=== PATIENT | female | born 2000 | race Two or more races ===

== ENCOUNTER 2020-07-17 12:08 | Emergency (ER) | payer OTHER, SELFPAY ==
--- NOTE | 2020-07-17 | US_ITS ---
EXAMINATION: FIRST TRIMESTER OB ULTRASOUND CLINICAL INFORMATION: Pain COMPARISON: None TECHNIQUE: First trimester transabdominal OB ultrasound FINDINGS: The uterus is normal in size and shape and measures 9.6 x 7 x 6.5 cm in sagittal AP and transverse dimension. There is an intrauterine gestational sac. [place]-rump length measures 3.2 cm suggesting gestational age of 10 weeks 1 day with estimated date of delivery of 02/11/2021. heart rate is 152 bpm. There is a yolk sac. The right maternal ovary is normal and measures 2.8 x 1.6 x 2.2 cm. The left maternal ovary is not seen. There is no fluid in the pelvis. IMPRESSION: Single viable intrauterine . From today's measurements gestational age is estimated at 10 weeks 1 day with estimated date of delivery of 02/11/2021.
[2020-07-17 12:41] VITALS: BP 130/77; PULSE 73; RESP 20; TEMP 36.9; O2SAT 99; BMI 33.3
[2020-07-17 12:48] VITALS: PULSE 73
[2020-07-17] MEDS: 0.9 % Sodium Chloride 1,000 ML 999 ML IVCONT (14:21)
[2020-07-17 14:22] LABS: MANUAL DIFF FLAG NO
[2020-07-17 14:26] LABS: Basophils Percent Auto 0.3 % (0-2); Eosinophils Absolute Auto 0.1 X10*3/uL (0.0-0.4); Eosinophils Percent Auto 0.4 % (0-4); Hematocrit 34.1 % (37-47); Hemoglobin 11.4 g/dl (12.0-16.0); Imm Gran Abs Auto 0.13 X10*3/uL (0.00-0.03); Imm Gran Pct Auto 1.1 % (0.0-0.4); Lymphocytes Absolute Auto 2.1 X10*3/uL (1.2-4.9); Lymphocytes Percent Auto 17.8 % (20-40); Mean Corpuscular HGB Conc 33.4 g/dl (31.0-35.0); Mean Corpuscular Hemoglobin 28.8 pg (27.0-33.0); Mean Corpuscular Volume 86.1 fL (80-98); Mean Platelet Volume 9.3 fL (9.4-12.3); Monocytes Absolute Auto 0.7 X10*3/uL (0.1-1.2); Monocytes Percent Auto 5.5 % (2-11); Neutrophils Absolute Auto 8.9 X10*3/uL (2.0-8.3); Neutrophils Percent Auto 74.9 % (45-73); Platelet Count 328 X10*3/uL (160-400); Red Blood Count 3.96 X10*6/uL (4.20-5.50); Red Cell Distribution Width 13.6 % (11.0-16.0); White Blood Count 11.9 X10*3/uL (4.8-10.8)
[2020-07-17 14:35] LABS: Glucose Urine UA NEG (NEG); Leukocyte Esterase Urine NEG (NEG); Nitrite Urine NEG (NEG); PH 6.5 (5.0-8.0); Specific Gravity - Urine >= 1.030 (1.005-1.025); UACC Culture Trigger NO; Urine Blood NEG (NEG); Urine Ketones NEG (NEG); Urine Protein NEG (NEG-TRACE)
[2020-07-17 14:36] LABS: Appearance Urine HAZY; Color Urine YELLOW
[2020-07-17 14:38] LABS: UPreg QC Valid YES; Urine Pregnancy POSITIVE (NEGATIVE)
[2020-07-17 14:56] LABS: Alanine Aminotransferase 14 U/L (0-31); Alkaline Phosphatase 67 U/L (39-117); Anion Gap 14 (12-20); Aspartate Amino Transferase 13 U/L (5-31); Bilirubin Direct < 0.2 mg/dL (0.0-0.5); Bilirubin Total 0.4 mg/dL (0.0-1.0); Blood Urea Nitrogen 6 mg/dL (9-16); Calcium 9.2 mg/dL (8.4-10.2); Carbon Dioxide 22 mmol/L (22-29); Chloride 105 mmol/L (96-108); Creatinine Clr Calc Pharmacy 143.1; Estimated Glomerular Filt Rate > 60; Glucose Random 67 mg/dL (60-115); Lipase 25 U/L (8-78); Potassium 3.9 mmol/l (3.3-5.1); Sodium 137 mmol/L (135-145); Total Protein 6.9 g/dL (6.5-8.0)
--- NOTE | 2020-07-17 16:50 | ED_ITS ---
HPI - Abdominal Pain General Chief Complaint: Abdominal Pain Stated Complaint: VOMITING Time Seen by Provider: 07/17/20 13:25 Source: patient Mode of arrival: ambulatory Limitations: no limitations History of Present Illness HPI narrative: This is a 20-year-old female who is currently between 10 to 12 weeks gestation she is A0 being followed by OBGYN services here with complaint of nausea and upper abdominal discomfort after she reports that she was given antibiotic for UTI. States she started taking this several days ago however every time she takes it makes her nauseated. States she has had overall well but due to the nausea she is worried that this may be affecting the baby and states she is either nervous or having some discomfort in the suprapubic area. She denies any vaginal bleeding or discharge. No flank pain. No fever. No concern for STI. MD elicited complaint: abdominal pain Pertinent past history: past UTI Onset (ago): day(s) Pain Consistency: intermittent (only after taking abx) Location: epigastric Severity: mild Associated symptoms: denies other symptoms Related Data Patient : Yes Previous Rx's Medication Instructions Recorded erythromycin 500 mg tablet 500 mg PO QID 5 Days #20 tab 07/16/20 nitrofurantoin monohyd/m-cryst 100 mg PO Q12H 7 Days #14 cap 07/17/20 [Macrobid] ondansetron HCl [Zofran] 4 mg PO Q8H PRN #10 tab 07/17/20 Allergies Allergy/AdvReac Type Severity Reaction Status Date / Time No Known Allergies Allergy Unverified 06/26/20 16:50 seasonal Allergy Unknown Uncoded 07/02/11 00:00 Review of Systems Review of Systems Constitutional: No Weight loss, No Fever, No Chills, No Night Sweats, No Fatigue, No Malaise ENT/Mouth: No Hearing loss, No Ear Pain, No Nasal Congestion, No Sinus Pain, No Hoarseness, No sore throat, No Rhinorrhea, No Swallowing Difficulty Eyes: No Eye Pain, No Swelling, No Redness, No Foreign Body, No Discharge, No Vision Changes Cardiovascular: No Chest Pain, No SOB, No Dyspnea on Exertion, No Orthopnea, No Edema, No Palpitations Respiratory: No Cough, No Sputum, No Wheezing, No Smoke Exposure, No Dyspnea Gastrointestinal: + Nausea, No Vomiting, No Diarrhea, No Constipation, + abdominal Pain In the epigastrium only when she takes the antibiotic., No Hematochezia, No Melena Genitourinary: no irregular bleeding, No Dysuria, No Urinary Frequency, No Hematuria, No Urinary Incontinence, No Urgency, No Flank Pain, No Urinary Flow Changes, No Hesitancy Musculoskeletal: No joint pain, No Myalgias, No Joint Swelling Skin: No Skin Lesions, No rash Neuro: No Weakness, No Numbness, No Paresthesias, No Loss of Consciousness, No Dizziness, No Headache Psych: No Anxiety/Panic, No Depression, No SI/HI/AH/VH, No Social Issues, H bassam/Lymph: No Bruising, No Bleeding,No Lymphadenopathy Endocrine: No Polyuria, No Polydipsia, No Temperature Intolerance Physical Exam Vital Signs and I&O and Narrative: Vital Signs and I&O: Vital Signs Temp 98.5 F 07/17/20 12:41 Pulse 73 07/17/20 12:41 Resp 20 07/17/20 12:41 BP 130/77 07/17/20 12:41 Pulse Ox 99 07/17/20 12:41 Intake & Output 07/16/20 07/17/20 07/17/20 18:59 06:59 18:59 Intake Total 1000 / 1000 Balance 1000 / 1000 Weight 79.838 kg Intake: Intake, IV Amoun t 1000 / 1000 0.9 % Sodium C hloride 1,000 ml 1000 / 1000 @ 999 mls/hr I VCONT .Q1H1M [facility] Rx#:[id number] Body Mass Index 33.3 Const: General: cooperative and healthy appearing; No acute distress or intoxicated appearing Nutritional Appearance: average body habitus Orientation/consciousness: patient oriented x3 HENMT: Head: Yes normal to inspection Ears: hearing grossly normal bilaterally Eyes: General: appearance normal, both eyes and all related structures Visual Yang: normal visual yang by confrontation Neck: Neck: Yes normal visual inspection and No tender Thyroid: Thyroid normal Chest: Chest palpation & inspection: normal inspection of the chest Resp: Effort & Inspection: normal respiratory effort Cardio: Jugular venous distension: no JVD Rate: regular rate GI: Inspection: Yes normal to inspection Percussion: Yes normal to percussion Auscultation: normal bowel sounds : General: Yes no CVA tenderness Back/Spine/Pelvis: Back: no CVA tenderness Skin: General skin exam: no rashes or lesions noted Neuro: General: patient oriented x3 Extrem: General: Yes normal to inspection Psych: Appearance: grossly normal and well kempt Course Course Course Narrative: has been resting comfortably. No pain or discomfort. Labs show very slight leukocytosis of 11.9. Otherwise labs stable. UA negative pending micro. Ob ultrasound shows single IUP from today's measurement gesta tional age estimated at 10 weeks 1 days with estimated due date of 02/11/2021. This is a correlation which her hCG quant. As well as a last minute cycle. No vaginal discharge or bleeding. recommendation at this time to stop the erythromycin. Pending the micro I would prefer Macrobid. No other signs or symptoms systemic infection or pyelo. No -related complaints. Will discharge with OB follow-up. MDM - Abdominal Pain Differential Diagnosis Differential diagnosis: Likely abdominal pain ( Antibiotic adverse effect, GERD, gastritis, , UTI) Lab Data Attestation: I reviewed the patient's lab results. Result diagrams: 07/17/20 14:15 07/17/20 14:15 Labs: Lab Results 07/17/20 07/17/20 07/17/20 Range/Units 14:15 14:15 14:15 WBC 11.9 H (4.8-10.8) X10*3/uL RBC 3.96 L (4.20-5.50) X10*6/uL Hgb 11.4 L (12.0-16.0) g/dl Hct 34.1 L (37-47) % MCV 86.1 (80-98) fL MCH 28.8 (27.0-33.0) pg MCHC 33.4 (31.0-35.0) g/dl RDW 13.6 (11.0-16.0) % Plt Count 328 (160-400) X10*3/uL MPV 9.3 L (9.4-12.3) fL Immature Gran % (Auto) 1.1 H (0.0-0.4) % Neut % (Auto) 74.9 H (45-73) % Lymph % (Auto) 17.8 L (20-40) % [place] % (Auto) 5.5 (2-11) % Eos % (Auto) 0.4 (0-4) % Baso % (Auto) 0.3 (0-2) % Lymph # (Auto) 2.1 (1.2-4.9) X10*3/uL [place] # (Auto) 0.7 (0.1-1.2) X10*3/uL Eos # (Auto) 0.1 (0.0-0.4) X10*3/uL Baso # (Auto) 0.0 (0.0-0.2) X10*3/uL Abs Immat Gran (auto) 0.13 H (0.00-0.03) X10*3/uL Absolute Neuts (auto) 8.9 H (2.0-8.3) X10*3/uL Absolute Nucleated RBC 0.000 (0.0-0.012) X10*3/uL Nucleated RBC % (auto) 0.0 (0.0-0.2) /100WBC Sodium 137 (135-145) mmol/L Potassium 3.9 (3.3-5.1) mmol/l Chloride 105 (96-108) mmol/L Carbon Dioxide 22 (22-29) mmol/L Anion Gap 14 (12-20) BUN 6 L (9-16) mg/dL Creatinine 0.60 (0.5-1.4) mg/dL Estim Creat Clear Calc 143.1 Estimated GFR > 60 Random Glucose 67 (60-115) mg/dL Calcium 9.2 (8.4-10.2) mg/dL Total Bilirubin 0.4 (0.0-1.0) mg/dL Direct Bilirubin < 0.2 (0.0-0.5) mg/dL AST 13 (5-31) U/L ALT 14 (0-31) U/L Alkaline Phosphatase 67 (39-117) U/L Total Protein 6.9 (6.5-8.0) g/dL Albumin 4.0 (3.5-5.0) g/dL Lipase 25 (8-78) U/L Beta HCG, Quant 013306 mIU/mL Urine Color YELLOW Urine Appearance HAZY Urine pH 6.5 (5.0-8.0) Ur Specific [place] >= 1.030 H (1.005-1.025) Urine Protein NEG (NEG-TRACE) MG/DL Urine Glucose (UA) NEG (NEG) MG/DL Urine Ketones NEG (NEG) MG/DL Urine Blood NEG (NEG) Urine Nitrite NEG (NEG) Ur Leukocyte Esterase NEG (NEG) Urine RBC 0 (0) /HPF Urine WBC 5-9 H (0-4) /HPF Ur Squamous Epith Cells 1+ /LPF Urine Bacteria TRACE /LPF Urine Test POSITIVE H (NEGATIVE) Blood Type 07/17/20 Range/Units 14:15 WBC (4.8-10.8) X10*3/uL RBC (4.20-5.50) X10*6/uL Hgb (12.0-16.0) g/dl Hct (37-47) % MCV (80-98) fL MCH (27.0-33.0) pg MCHC (31.0-35.0) g/dl RDW (11.0-16.0) % Plt Count (160-400) X10*3/uL MPV (9.4-12.3) fL Immature Gran % (Auto) (0.0-0.4) % Neut % (Auto) (45-73) % Lymph % (Auto) (20-40) % [place] % (Auto) (2-11) % Eos % (Auto) (0-4) % Baso % (Auto) (0-2) % Lymph # (Auto) (1.2-4.9) X10*3/uL [place] # (Auto) (0.1-1.2) X10*3/uL Eos # (Auto) (0.0-0.4) X10*3/uL Baso # (Auto) (0.0-0.2) X10*3/uL Abs Immat Gran (auto) (0.00-0.03) X10*3/uL Absolute Neuts (auto) (2.0-8.3) X10*3/uL Absolute Nucleated RBC (0.0-0.012) X10*3/uL Nucleated RBC % (auto) (0.0-0.2) /100WBC Sodium (135-145) mmol/L Potassium (3.3-5.1) mmol/l Chloride (96-108) mmol/L Carbon Dioxide (22-29) mmol/L Anion Gap (12-20) BUN (9-16) mg/dL Creatinine (0.5-1.4) mg/dL Estim Creat Clear Calc Estimated GFR Random Glucose (60-115) mg/dL Calcium (8.4-10.2) mg/dL Total Bilirubin (0.0-1.0) mg/dL Direct Bilirubin (0.0-0.5) mg/dL AST (5-31) U/L ALT (0-31) U/L Alkaline Phosphatase (39-117) U/L Total Protein (6.5-8.0) g/dL Albumin (3.5-5.0) g/dL Lipase (8-78) U/L Beta HCG, Quant mIU/mL Urine Color Urine Appearance Urine pH (5.0-8.0) Ur Specific [place] (1.005-1.025) Urine Protein (NEG-TRACE) MG/DL Urine Glucose (UA) (NEG) MG/DL Urine Ketones (NEG) MG/DL Urine Blood (NEG) Urine Nitrite (NEG) Ur Leukocyte Esterase (NEG) Urine RBC (0) /HPF Urine WBC (0-4) /HPF Ur Squamous Epith Cells /LPF Urine Bacteria /LPF Urine Test (NEGATIVE) Blood Type O Positive Imaging Data Ob/pelvic ultrasound: Radiologist's impression: [place] [id number] Ultrasound Report Signed Patient: Ruma Tamez#: [id number] : 2000Acct:[id number] Age/Sex: 20 / FADM Date: 07/17/20 Loc: .ED Attending Dr: Ordering Physician: Mati Sher NP Date of Service: 07/17/20 Procedure(s): US OB <= 14 weeks fetus Accession Number(s): [id number] cc: Mati Sher PHARMACY TEACHER~ EXAMINATION: FIRST TRIMESTER OB ULTRASOUND CLINICAL INFORMATION: Pain COMPARISON: None TECHNIQUE: First trimester transabdominal OB ultrasound FINDINGS: The uterus is normal in size and shape and measures 9.6 x 7 x 6.5 cm in sagittal AP and transverse dimension. There is an intrauterine gestational sac. [place]-rump length measures 3.2 cm suggesting gestational age of 10 weeks 1 day with estimated date of delivery of 02/11/2021. heart rate is 152 bpm. There is a yolk sac. The right maternal ovary is normal and measures 2.8 x 1.6 x 2.2 cm. The left maternal ovary is not seen. There is no fluid in the pelvis. IMPRESSION: Single viable intrauterine . From today's measurements gestational age is estimated at 10 weeks 1 day with estimated date of delivery of 02/11/2021. Dictated By:JOHNATHAN DINERO MD Signed By:<Electronically signed by JOHNATHAN DINERO MD in OV>07/17/20 1551 DD/ 1447 TD/TT: Barometers Calibrator: YULIA Discharge Plan Discharge Clinical Impression: UTI (urinary tract infection) during Qualifiers: Trimester: first trimester Qualified Code(s): O23.41 - Unspecified infection of urinary tract in , first trimester Patient Disposition: Home, Self-Care Additional Instructions: Stop taking the erythromycin antibiotic Start taking the new antibiotic prescribed to you today This antibiotic is called Macrobid take this twice a day for 7 days. Follow up with her OBGYN team as discussed Return if any concerns or worsening symptoms Thank you Prescriptions: New nitrofurantoin monohyd/m-cryst [Macrobid] 100 mg capsule 100 mg PO Q12H 7 Days Qty: 14 RF: 0 ondansetron HCl [Zofran] 4 mg tablet 4 mg PO Q8H PRN (Reason: nausea and vomiting) Qty: 10 RF: 0 No Action erythromycin 500 mg tablet 500 mg PO QID 5 Days Qty: 20 RF: 0 Referrals: Gonzales Masterson MD [Physician] - 2 days Stand Alone Forms: Work/School Release [facility] Past Medical History Attestation statement: The following information was validated with the patient. Medical History (Updated 07/17/20 @ 17:43 by Mati Sher NP) No known health problems Social History Social History Smoked in Last 30 Days: No Use of substances other than those prescribed or required for medical reasons: No Advance Directives: No Advance Directives Information Provided: Yes
[2020-07-17 17:20] LABS: Bacteria Urine TRACE /LPF; RBC Urine 0 /HPF (0); Squamous Epithelial Cell Urine 1+ /LPF; UACC CULT YES
== END 2020-07-17 18:06 | disposition home or self-care (01) ==
PROVIDERS: Nurse Practitioner Primary Care; Emergency Provider Internal Medicine
DX: O23.41 Unspecified infection of urinary tract in pregnancy, first trimester (principal); Z3A.10 10 weeks gestation of pregnancy
CPT/HCPCS: 36415; 76801; 80048; 80076; 81003; 81015; 81025; 83690; 84702; 85025; 86900; 86901; 87086; 87088; 87147; 87186; 96360; 99284; 99285

== ENCOUNTER 2020-07-30 09:03 | Outpatient (REF) | payer OTHER, SELFPAY ==
[2020-07-30 15:02] LABS: CT PCR NOT DETECTED (Not Detect.); NG PCR NOT DETECTED (Not Detect.)
== END 2020-07-30 09:04 | disposition home or self-care (01) ==
LOC: HO.LAB 09:03
PROVIDERS: Visit Provider Advanced Practice Midwife
DX: Z34.00 Encounter for supervision of normal first pregnancy, unspecified trimester (principal); R82.71 Bacteriuria
CPT/HCPCS: 87491; 87591; 90686

== ENCOUNTER 2020-08-01 13:53 | Outpatient (REF) | payer OTHER, SELFPAY ==
--- NOTE | 2020-08-01 | US_ITS ---
EXAMINATION: OBSTETRICAL ULTRASOUND, FIRST TRIMESTER HISTORY: 20-year-old at the 12.2 weeks of gestation NT screening High BMI COMPARISON: 07/17/2020 TECHNIQUE: Real time transabdominal imaging with color and M-mode Doppler. FINDINGS: A single, live IUP CRL of 66.3 mm c/w 13.0wks is noted. Heart Rate: 153 beats per minute. Normal yolk sac seen. NT was 1.12.mm. NB Present The embryo appears sonographically wnl for this GA. Both maternal ovaries are seen and appear normal. GESTATIONAL AGE: 1. Established GA: 12.2 wks 2. GA from AUA: 13.0 wks ESTIMATED DATE OF DELIVERY: 1. Established KIMO: 02/11/2021 2. KIMO from [facility]: 02/06/2021 US/US OB 1T nuc measure IMPRESSION: Single live IUP Size equals dates NT of 1.12 mm MFM Consultation: She informs me that the she was diagnosed with the renal tubular acidosis shortly after which resolved by the time she was 2 years of age. Without additional information, I would be difficult to estimate the risk to the fetus. In addition the renal tubular acidosis is not a diagnosis. I reviewed the ultrasound findings along with significance of NT measurement. The NT of less than 3mm is generally reassuring. However, the sensitivity for T21 detection is only 60%. I reviewed the availability of serum aneuploidy screening which includes cell-free DNA and placental protein based tests. I discussed the sensitivity, false-positive rate, and other limitations associated with each test. I also reviewed the availability of invasive diagnostic tests that are associated small but definite risk of miscarriage. We also reviewed the differences between screening tests and diagnostic tests. After our discussion, she opted for the First trimester screening that is based on cell-free DNA or non-invasive testing (NIPT). The result will be faxed to your office in approximately 7 days. A follow up at 18 weeks for survey has been scheduled. Thank you very much for this referral. Majority of this visit was spent reviewing her care and counselling her in face to face time: Time spent 20 min.
== END 2020-08-01 13:54 | disposition home or self-care (01) ==
LOC: HO.US 13:53
PROVIDERS: Visit Provider Advanced Practice Midwife
DX: Z34.91 Encounter for supervision of normal pregnancy, unspecified, first trimester (principal)
CPT/HCPCS: 76813

== ENCOUNTER → 2020-08-27 09:23 | Outpatient (BNVA) | payer OTHER, SELFPAY | PROVIDERS: Visit Provider Advanced Practice Midwife | DX: Z76.89 Persons encountering health services in other specified circumstances (principal) ==

== ENCOUNTER 2020-09-12 11:01 | Outpatient (REF) | payer OTHER, SELFPAY ==
--- NOTE | 2020-09-12 11:07 | US_ITS ---
EXAMINATION: US OBSTETRICAL CLINICAL INFORMATION: 20-year-old at 18.2 weeks of gestation Suspected anomaly COMPARISON: 08/01/2020 TECHNIQUE: Real-time transabdominal ultrasound was performed using C1-5 megahertz transducer. FINDINGS: A single, active, fetus is seen in breech presentation. The placenta is anterior without previa, and the amniotic fluid volume is wnl. MEASUREMENTS: 1. Biparietal Diameter: 4.2 cm; 18.5 wks 2. Occipital Frontal Diameter: 5.54 cm 3. Head Circumference: 15.7 cm; 18.5 wks 4. Abdominal Circumference: 13.2 cm; 18.6 wks 5. Femur Length: 2.8 cm; 18.4 wks 6. Humerus Length: 2.7 cm; 18.5 wks 7. Tibia Length: 2.3 cm; 18.1 wks 8. Ulna Length: 2.52 cm; 19.1 wks 9. Lateral ventricle: 0.76 cm 10. Cerebellum: 1.87 cm; 19.3 wks 11. Cisterna Magna: 0.36 cm 12. Nuchal Fold: 3.7 mm 13. Heart Rate: 142 beats per minute Rt ovary: normal Lt ovary: Unable to visualize Cervical length 4.1 cm on T/A. GESTATIONAL AGE: 1. Established GA: 18.2 wks 2. GA from [facility]: 18.5 wks ESTIMATED DATE OF DELIVERY: 1. Established KIMO: 02/11/2021 2. KIMO from [facility]: 02/08/2021 ANATOMY: The visualized anatomy includes but not limited to: 1. Cranium: Normal 2. Intracranial anatomy: cavum septum pellucidi, lateral ventricles, choroid plexus, cerebellum, posterior fossa, third and fourth ventricles. 3. face: orbits, lip/palate, profile, nasal bone 4. Heart: Limited views of the four-chamber and situs due to position. Following views were within normal limits: ventricular septum, foramen ovale, pulmonary vein, left and right outflow tracts, three-vessel view, 3 vessel trachea view, aortic and ductal arches. 5. Diaphragm: Normal 6. Abdominal wall: Normal 7. Cord Insertion: Normal 8. Spine: Suboptimal due to position. 9. Stomach: Normal size and shape 10. Right Kidney: Normal 11. Left Kidney: Normal 12. 3 vessel cord: Normal 13. Upper extremity: Open hands, fifth digit. 14. Lower extremity: Tibia, fibula, bilateral feet. 15. Bladder: Normal 16. Genitalia: Female, patient aware US/US OB /maternal detail IMPRESSION: 1. Single, living, intrauterine with appropriate biometry. 2. Limited the views of the four-chamber, situs and spine due to position. No abnormalities were seen in visualized anatomy. DISCUSSION: I reviewed today's ultrasound findings. We discussed the limitations of ultrasound in diagnosing aneuploidy and other congenital abnormalities. I reviewed the differences between screening test and diagnostic test. Amniocentesis was discussed and declined. She was informed that the baseline incidence of congenital abnormalities is approximately 3-5%. Not all these conditions are diagnosable in utero. RECOMMENDATIONS: 1. Follow-up ultrasound has been scheduled in 2 weeks. Thank you for allowing me to participate in her care. Visiting time 25 minutes. Majority of this visit was spent reviewing and discussing her care.
== END 2020-09-12 11:02 | disposition home or self-care (01) ==
LOC: HO.US 11:01
PROVIDERS: Visit Provider Advanced Practice Midwife
DX: O35.9XX0 Maternal care for (suspected) fetal abnormality and damage, unspecified, not applicable or unspecified (principal); Z3A.18 18 weeks gestation of pregnancy
CPT/HCPCS: 76811

== ENCOUNTER 2020-09-17 13:51 | Outpatient (REF) | payer OTHER, SELFPAY ==
[2020-09-18 11:11] LABS: BV Int Neg Control Negative (Negative); BV Int Pos Control Positive (Positive)
[2020-09-20 11:09] LABS: CT PCR NOT DETECTED (Not Detect.); NG PCR NOT DETECTED (Not Detect.)
== END 2020-09-17 13:52 | disposition home or self-care (01) ==
LOC: HO.LAB 13:51
PROVIDERS: Visit Provider Advanced Practice Midwife
DX: O26.892 Other specified pregnancy related conditions, second trimester (principal); R10.9 Unspecified abdominal pain; R30.0 Dysuria; R31.9 Hematuria, unspecified; N89.8 Other specified noninflammatory disorders of vagina
CPT/HCPCS: 87086; 87088; 87186; 87480; 87491; 87510; 87591; 87660; 99212

== ENCOUNTER 2020-09-18 09:03 | Outpatient (REF) | payer OTHER, SELFPAY ==
--- NOTE | 2020-09-18 09:13 | US_ITS ---
EXAMINATION: US RETROPERITONEAL LIMITED (RENAL ONLY) CLINICAL INFORMATION: Unspecified abdominal pain. COMPARISON: None TECHNIQUE: Real-time imaging of the kidneys. FINDINGS: RIGHT KIDNEY: 10.2 x 5.6 x 6.2 cm (SAG x AP x TRV). The kidney is normal in size, contour, and echogenicity. Renal cortical thickness is normal. No calculi or focal parenchymal lesions. No hydronephrosis. LEFT KIDNEY: 11.7 x 5.2 x 5.2 cm (SAG x AP x TRV). The kidney is normal in size, contour, and echogenicity. Renal cortical thickness is normal. No calculi or focal parenchymal lesions. No hydronephrosis. US/US renal BI IMPRESSION: Unremarkable renal ultrasound.
== END 2020-09-18 09:04 | disposition home or self-care (01) ==
LOC: HO.US 09:03
PROVIDERS: Visit Provider Advanced Practice Midwife
DX: R10.9 Unspecified abdominal pain (principal)
CPT/HCPCS: 76775

== ENCOUNTER 2020-09-24 08:18 | Outpatient (REF) | payer OTHER, SELFPAY | END 2020-09-24 08:19 | disposition home or self-care (01) | LOC: HO.LAB 08:18 | PROVIDERS: PCP Internal Medicine; Visit Provider Advanced Practice Midwife | DX: Z34.02 Encounter for supervision of normal first pregnancy, second trimester (principal) | CPT/HCPCS: 87086 ==

== ENCOUNTER 2020-09-26 09:06 | Outpatient (REF) | payer OTHER, SELFPAY ==
--- NOTE | 2020-09-26 09:18 | US_ITS ---
EXAMINATION: OBSTETRICAL ULTRASOUND, Follow up HISTORY: 20-year-old at 20.2 weeks of gestation Follow-up anatomy COMPARISON: 09/18/2020 TECHNIQUE: Real time transabdominal imaging with color and M-mode Doppler. PRESENTATION: Breech PLACENTA LOCATION: Anterior without previa AMNIOTIC FLUID: Normal MEASUREMENTS: 1. Biparietal Diameter: 4.5 cm; 19.5 wks 2. Head Circumference: 18.0 cm; 20.4 wks 3. Abdominal Circumference: 14.9 cm; 20.2 wks 4. Femur Length: 3.4 cm; 20.6 wks 5. Heart Rate: 147 beats per minute Normal views of spine, 4ch view, LVOT, RVOT, aortic and ductal arches, 3 vessel trachea view. GESTATIONAL AGE: 1. Established GA: 20.2 wks 2. GA from AUA: 20.3 wks ESTIMATED DATE OF DELIVERY: 1. Established KIMO: 02/11/2021 2. KIMO from [facility]: 02/10/2021 US/US OB follow up IMPRESSION: 1. A single fetus with appropriate interval growth. 2. Previously limited views of the anatomy were seen as listed above. No abnormalities were noted in visualized anatomy. 3. This completes the survey. I reviewed the limitations of ultrasound in diagnosing aneuploidy and other congenital abnormalities. Amniocentesis was again reviewed and she declined. She was informed that the baseline instance of congenital abnormalities and defects in the general population is approximately 3-5%. Not all these conditions are diagnosable in utero. RECOMMENDATIONS: 1. f/u PRN Thank you very much for this referral. Visiting time 15 minutes. Majority of this visit was spent reviewing the ultrasound findings as well as her care.
== END 2020-09-26 09:07 | disposition home or self-care (01) ==
LOC: HO.US 09:06
PROVIDERS: PCP Internal Medicine; Visit Provider Advanced Practice Midwife
DX: Z34.00 Encounter for supervision of normal first pregnancy, unspecified trimester (principal)
CPT/HCPCS: 76816

== ENCOUNTER → 2020-10-22 08:17 | Outpatient (BNVA) | payer OTHER, SELFPAY | PROVIDERS: PCP Internal Medicine; Visit Provider Advanced Practice Midwife | DX: Z34.02 Encounter for supervision of normal first pregnancy, second trimester (principal) | CPT/HCPCS: 81003; 99212 ==

== ENCOUNTER → 2020-11-19 08:40 | Outpatient (BNVA) | payer OTHER, SELFPAY | PROVIDERS: PCP Internal Medicine; Visit Provider Advanced Practice Midwife | DX: Z34.03 Encounter for supervision of normal first pregnancy, third trimester (principal); Z13.31 Encounter for screening for depression | CPT/HCPCS: 81003; 99212 ==

== ENCOUNTER 2020-12-02 09:10 | Outpatient (REF) | payer OTHER, SELFPAY ==
[2020-12-02 10:48] LABS: Hematocrit 31.9 % (37-47); Hemoglobin 10.6 g/dl (12.0-16.0); Mean Corpuscular HGB Conc 33.2 g/dl (31.0-35.0); Mean Corpuscular Volume 84.2 fL (80-98); Mean Platelet Volume 9.5 fL (9.4-12.3); Platelet Count 323 X10*3/uL (160-400); Red Blood Count 3.79 X10*6/uL (4.20-5.50); Red Cell Distribution Width 13.8 % (11.0-16.0); White Blood Count 13.4 X10*3/uL (4.8-10.8)
[2020-12-02 11:00] LABS: Glucose 1 Hour PP 50gm Dose 219 mg/dL (60-140)
[2020-12-03 07:39] LABS: Syphilis Screen Nonreactive (Nonreactive)
== END 2020-12-02 09:11 | disposition home or self-care (01) ==
LOC: HO.LAB 09:10
PROVIDERS: PCP Internal Medicine; Visit Provider Advanced Practice Midwife
DX: Z34.00 Encounter for supervision of normal first pregnancy, unspecified trimester (principal); Z20.2 Contact with and (suspected) exposure to infections with a predominantly sexual mode of transmission
CPT/HCPCS: 36415; 85027; 86780

== ENCOUNTER → 2020-12-03 09:10 | Outpatient (BNVA) | payer OTHER, SELFPAY | PROVIDERS: PCP Internal Medicine; Visit Provider Advanced Practice Midwife | DX: O24.419 Gestational diabetes mellitus in pregnancy, unspecified control (principal); O99.019 Anemia complicating pregnancy, unspecified trimester | CPT/HCPCS: 81003; 99212 ==

== ENCOUNTER → 2020-12-12 13:42 | Outpatient (BNVA) | payer OTHER, SELFPAY | PROVIDERS: PCP Internal Medicine; Visit Provider Obstetrics & Gynecology | DX: O24.419 Gestational diabetes mellitus in pregnancy, unspecified control (principal) | CPT/HCPCS: 81003; 99212 ==

== ENCOUNTER 2020-12-19 11:01 | Outpatient (REF) | payer OTHER, SELFPAY ==
--- NOTE | ~2020-12-19 | US_ITS ---
EXAMINATION: OBSTETRICAL ULTRASOUND, Follow up HISTORY: 20-year-old at the 32.2 weeks of gestation Gestational diabetes Size date discrepancy COMPARISON: 09/26/2020 TECHNIQUE: Real time transabdominal imaging with color and M-mode Doppler. PRESENTATION: Vertex PLACENTA LOCATION: Anterior without previa AMNIOTIC FLUID: SHO 11.5 cm MEASUREMENTS: 1. Biparietal Diameter: 8.25 cm; 33.2 wks 2. Head Circumference: 30.1 cm; 33.4 wks 3. Abdominal Circumference: 28.9 cm; 33.0 wks 4. Femur Length: 6.6 cm; 33.6 wks 5. Heart Rate: 150 beats per minute WEIGHT: EFW: 2157 grams (4 lbs 12 oz) -- 71 %. BIOPHYSICAL PROFILE: Motion: 2 Tone: 2 Breathin Amniotic Fluid: 2 Total score: 8/8 GESTATIONAL AGE: 1. Established GA: 32.2 wks 2. GA from AUA: 33.3 wks ESTIMATED DATE OF DELIVERY: 1. Established KIMO: 02/11/2021 2. KIMO from [facility]: 02/03/2021 US/US OB follow up IMPRESSION: A single active fetus is in vertex presentation Size equals dates, EFW corresponds to 71% Reassuring biophysical profile with normal amniotic fluid index. She was recently diagnosed with the gestational diabetes. She has been on GDM diet for one week. Reports that her fasting glucose values range in the 80s. Majority of her 2 hour postprandials range between 100 and 120. Reports that only 2 values were above 120 last week. We discussed the increased risk of macrosomia and hypoglycemia in woman with suboptimally controlled serum glucose during . I informed her that the EFW today corresponds to 70th%, which is wnl. I reviewed the limitations of ultrasound in estimating weight. In addition, normal SHO is reassuring. A follow up in 3 weeks has been scheduled. Thank you very much for this referral. Total time 20 minutes. The time spent was devoted to counseling the patient about the disease and diagnosis, coordinating care including reviewing her records, pertinent lab data and studies, as well as discussing diagnostic evaluation and workup, plan therapeutic interventions and future disposition of care. This includes any additional research needed to obtain further information in formulating the plan of care of this patient. This note was generated with a voice recognition program. Please excuse any errors which may have been overlooked during my review of this note. Sometimes these errors may affect the content or meaning of a given sentence.
== END 2020-12-19 11:02 | disposition home or self-care (01) ==
LOC: HO.US 11:01
PROVIDERS: PCP Internal Medicine; Visit Provider Obstetrics & Gynecology
DX: O24.410 Gestational diabetes mellitus in pregnancy, diet controlled (principal); Z3A.32 32 weeks gestation of pregnancy
CPT/HCPCS: 76816; 81003; 99212

== ENCOUNTER 2021-01-02 08:54 | Outpatient (REF) | payer OTHER, SELFPAY | END 2021-01-02 08:55 | disposition home or self-care (01) | LOC: HO.LAB 08:54 | PROVIDERS: PCP Internal Medicine; Visit Provider Obstetrics & Gynecology | DX: O24.410 Gestational diabetes mellitus in pregnancy, diet controlled (principal); O26.893 Other specified pregnancy related conditions, third trimester; R30.0 Dysuria; O99.820 Streptococcus B carrier state complicating pregnancy; Z3A.34 34 weeks gestation of pregnancy | CPT/HCPCS: 81003; 87086; 99212 ==

== ENCOUNTER 2021-01-09 09:43 | Outpatient (REF) | payer OTHER, SELFPAY ==
--- NOTE | ~2021-01-09 | US_ITS ---
EXAMINATION: OBSTETRICAL ULTRASOUND, Follow up HISTORY: 20-year-old at 35.2 weeks of gestation Gestational diabetes on diet Size date discrepancy COMPARISON: 12/19/2020 TECHNIQUE: Real time transabdominal imaging with color and M-mode Doppler. PRESENTATION: Vertex PLACENTA LOCATION: Anterior without previa AMNIOTIC FLUID: SHO 11.1 cm MEASUREMENTS: 1. Biparietal Diameter: 8.7 cm; 35.1 wks 2. Head Circumference: 32.9 cm; 37.3 wks 3. Abdominal Circumference: 32.2 cm; 36.1 wks 4. Femur Length: 7.2 cm; 36.6 wks 5. Heart Rate: 134 beats per minute WEIGHT: EFW: 2901 grams (6 lbs 6 oz) -- 76 %. BIOPHYSICAL PROFILE: Motion: 2 Tone: 2 Breathin Amniotic Fluid: 2 Total score: 8/8 GESTATIONAL AGE: 1. Established GA: 35.2 wks 2. GA from AUA: 36.3 wks ESTIMATED DATE OF DELIVERY: 1. Established KIMO: 02/11/2021 2. KIMO from [facility]: 02/03/2021 US/US OB follow up IMPRESSION: 1. A single active fetus is in vertex presentation 2. Size equals dates 3. Reassuring biophysical profile with normal amniotic fluid index. Patient informs me that that she has been on GDM diet for approximately a month. Reports that her fasting values this morning was 65. She is asymptomatic. I reviewed today's ultrasound findings and gave her reassurance. Recommended a follow-up in 3 weeks as long as her glycemic control remains excellent on diet. Thank you very much for this referral. Total time 30 minutes. The time spent was devoted to counseling the patient about the disease and diagnosis, coordinating care including reviewing her records, pertinent lab data and studies, as well as discussing diagnostic evaluation and workup, plan therapeutic interventions and future disposition of care. This includes any additional research needed to obtain further information in formulating the plan of care of this patient. This note was generated with a voice recognition program. Please excuse any errors which may have been overlooked during my review of this note. Sometimes these errors may affect the content or meaning of a given sentence.
== END 2021-01-09 09:44 | disposition home or self-care (01) ==
LOC: HO.US 09:43
PROVIDERS: PCP Internal Medicine; Visit Provider Obstetrics & Gynecology
DX: O24.419 Gestational diabetes mellitus in pregnancy, unspecified control (principal); Z3A.35 35 weeks gestation of pregnancy
CPT/HCPCS: 76816; 99212

== ENCOUNTER → 2021-01-16 08:42 | Outpatient (BNVA) | payer OTHER, SELFPAY | PROVIDERS: Visit Provider Obstetrics & Gynecology | DX: O24.410 Gestational diabetes mellitus in pregnancy, diet controlled (principal) | CPT/HCPCS: 99212 ==

== ENCOUNTER 2021-01-23 10:59 | Outpatient (REF) | payer OTHER, SELFPAY | END 2021-01-23 11:00 | disposition home or self-care (01) | LOC: HO.LAB 10:59 | PROVIDERS: Visit Provider Obstetrics & Gynecology | DX: O24.410 Gestational diabetes mellitus in pregnancy, diet controlled (principal); O26.893 Other specified pregnancy related conditions, third trimester; R82.71 Bacteriuria | CPT/HCPCS: 87081; 99212 ==

== ENCOUNTER → 2021-01-27 14:30 | Outpatient (BNVA) | payer OTHER, SELFPAY | PROVIDERS: Visit Provider Obstetrics & Gynecology | DX: O24.410 Gestational diabetes mellitus in pregnancy, diet controlled (principal); Z3A.37 37 weeks gestation of pregnancy | CPT/HCPCS: 81003; 99212 ==

== ENCOUNTER 2021-01-30 09:55 | Outpatient (REF) | payer OTHER, SELFPAY ==
--- NOTE | ~2021-01-30 | US_ITS ---
EXAMINATION: OBSTETRICAL ULTRASOUND, Follow up HISTORY: 20-year-old at the 38.2 weeks of gestation Size date discrepancy Gestational diabetes on diet COMPARISON: 01/09/2021 TECHNIQUE: Real time transabdominal imaging with color and M-mode Doppler. PRESENTATION: Vertex PLACENTA LOCATION: Anterior without previa AMNIOTIC FLUID: SHO 10.1 cm MEASUREMENTS: 1. Biparietal Diameter: 9.1 cm; 37.0 wks 2. Head Circumference: 33.3 cm; 38.0 wks 3. Abdominal Circumference: 32.8 cm; 36.6 wks 4. Femur Length: 7.5 cm; 38.3 wks 5. Heart Rate: 160 beats per minute WEIGHT: EFW: 3171 grams (7 lbs 0 oz) -- 39 %. BIOPHYSICAL PROFILE: Motion: 2 Tone: 2 Breathin Amniotic Fluid: 2 Total score: 8/8 GESTATIONAL AGE: 1. Established GA: 38.2 wks 2. GA from A: 37.4 wks ESTIMATED DATE OF DELIVERY: 1. Established KIMO: 02/11/2021 2. KIMO from AUA: 02/16/2021 US/US OB follow up IMPRESSION: 1. Single active fetus is in vertex presentation 2. Size equals dates 3. Normal biophysical No further ultrasound has been scheduled. Thank you very much for this referral. This note was generated with a voice recognition program. Please excuse any errors which may have been overlooked during my review of this note. Sometimes these errors may affect the content or meaning of a given sentence.
== END 2021-01-30 09:56 | disposition home or self-care (01) ==
LOC: HO.US 09:55
PROVIDERS: PCP Internal Medicine; Visit Provider Obstetrics & Gynecology
DX: O24.410 Gestational diabetes mellitus in pregnancy, diet controlled (principal); O26.843 Uterine size-date discrepancy, third trimester; Z3A.38 38 weeks gestation of pregnancy
CPT/HCPCS: 76816

== ENCOUNTER → 2021-02-09 11:19 | Outpatient (BNVA) | payer OTHER, SELFPAY | PROVIDERS: Visit Provider Obstetrics & Gynecology | DX: Z13.89 Encounter for screening for other disorder (principal) | CPT/HCPCS: 99212 ==

== ENCOUNTER 2021-03-27 08:53 | Outpatient (REF) | payer OTHER, SELFPAY ==
[2021-03-27 17:00] LABS: CT PCR NOT DETECTED (Not Detect.); NG PCR NOT DETECTED (Not Detect.)
== END 2021-03-27 08:54 | disposition home or self-care (01) ==
LOC: HO.LAB 08:53
PROVIDERS: Visit Provider Obstetrics & Gynecology
DX: Z39.2 Encounter for routine postpartum follow-up (principal); Z30.430 Encounter for insertion of intrauterine contraceptive device
CPT/HCPCS: 58300; 87491; 87591; 99212; J7298

== ENCOUNTER 2021-06-03 08:16 | Outpatient (REF) | payer OTHER, SELFPAY ==
[2021-06-04 08:58] LABS: BV Int Neg Control Negative (Negative); BV Int Pos Control Positive (Positive)
== END 2021-06-03 08:17 | disposition home or self-care (01) ==
LOC: HO.LAB 08:16
PROVIDERS: Visit Provider Advanced Practice Midwife
DX: R10.2 Pelvic and perineal pain (principal); Z30.431 Encounter for routine checking of intrauterine contraceptive device
CPT/HCPCS: 87480; 87510; 87660; 99212

== ENCOUNTER 2021-07-31 09:00 | Outpatient (REF) | payer OTHER, SELFPAY ==
[2021-07-31 14:20] LABS: CT PCR NOT DETECTED (Not Detect.); NG PCR NOT DETECTED (Not Detect.)
== END 2021-07-31 09:01 | disposition home or self-care (01) ==
LOC: HO.LAB 09:00
PROVIDERS: Visit Provider Advanced Practice Midwife
DX: Z01.419 Encounter for gynecological examination (general) (routine) without abnormal findings (principal); Z11.3 Encounter for screening for infections with a predominantly sexual mode of transmission; Z20.2 Contact with and (suspected) exposure to infections with a predominantly sexual mode of transmission
CPT/HCPCS: 87491; 87591; 88142

== ENCOUNTER 2022-08-31 15:38 | Emergency (ER) | payer OTHER, SELFPAY ==
[2022-08-31 15:44] VITALS: BP 149/81; PULSE 67; RESP 18; TEMP 36.2; O2SAT 99; BMI 35.9
--- NOTE | 2022-08-31 15:54 | ED_ITS ---
HPI - Ear Problem General Chief complaint: Ear Problems Stated complaint: ?left ear infection Time Seen by Provider: 08/31/22 15:49 Source: patient History of Present Illness HPI Narrative: Patient c/o left ear pain x several days. Son also had earache recently with URI. Denies fever chills or drainage from the ear. Complaint: ear pain Location: left ear Duration: constant Severity: mild Related Data Home Medications Medication Instructions Recorded Confirmed vitamin with calcium 1 tab PO DAILY 07/30/20 12/03/20 no.72-iron 27 mg-folic acid 1 mg tablet levonorgestrel 20 mcg/24 hours (8 intrauterine 06/03/21 yrs) 52 mg intrauterine device (Mirena) Previous Rx's Medication Instructions Recorded ondansetron HCl 4 mg tablet 4 mg PO Q8H PRN nausea and 07/17/20 (Zofran) vomiting #10 tabs nitrofurantoin 100 mg PO Q12H 5 days #10 caps 09/17/20 monohydrate/macrocrystals 100 mg capsule (Macrobid) miconazole nitrate 2 % vaginal 1 appful vaginal BEDTIME 7 days 09/18/20 cream (Monistat 7) #45 grams aspirin 81 mg chewable tablet 162 mg PO DAILY #60 tabs 10/22/20 (Aspirin Childrens) blood sugar diagnostic (FreeStyle #100 ea 12/03/20 Lite Strips) blood-glucose meter (FreeStyle #1 ea 12/03/20 Lite Meter kit) ferrous sulfate 324 mg (65 mg 324 mg PO TID #90 tabs 12/03/20 iron) tablet,delayed release lancets 28 gauge (FreeStyle #100 ea 12/03/20 Lancets) polyethylene glycol 3350 17 8.5 g PO DAILY #238 grams 12/03/20 gram/dose oral powder (Miralax) metronidazole 500 mg tablet 500 mg PO BID 7 days #14 tabs 06/04/21 (Flagyl) zimsmakn-wkngqteca-cmjbcxwgx 3.5 4 drp otic (ear) left Q8H #10 mL 08/31/22 mg-10,000 unit/mL-1 % ear drops,susp Allergies Allergy/AdvReac Type Severity Reaction Status Date / Time Penicillins Allergy Intermediate itching, Verified 07/31/21 09:16 throat feels funny seasonal Allergy Unknown Unknown Uncoded 01/16/21 08:52 Review of Systems Constitutional: Constitutional: Denies chills, Denies fever(s), Denies headache(s), Denies weakness, Denies weight gain and Denies weight loss ENT: Denies dizziness, Denies dry mouth, Denies ear discharge, Reports otalgia, Denies facial pain and Denies headache(s) Musculoskeletal: Musculoskeletal: Denies tingling Neurologic: Denies Abnormal speech present, Denies confusion, Denies dizziness, Denies headache(s), Denies tingling and Denies weakness Psychiatric: Psychiatric: Denies confusion [facility] Past Medical History Medical History Constipation GERD (gastroesophageal reflux disease) RTA (renal tubular acidosis) Spinal asymmetry (< 10 degrees) Surgical History No history of previous surgery [place] teeth extracted Family History Family History Maternal Grandmother Diabetes mellitus HTN (hypertension) CVD (cardiovascular disease) Maternal Grandfather Diabetes mellitus HTN (hypertension) Social History Social History Alcohol intake: never Advance Directives: No Advance Directives Information Provided: No Gender identity: Female Physical Exam Vital Signs: Vital Signs: Last Vital Signs Temp 97.1 F 08/31/22 15:44 Pulse 67 08/31/22 15:44 Resp 18 08/31/22 15:44 BP 149/81 H 08/31/22 15:44 Pulse Ox 99 08/31/22 15:44 O2 Del Method 08/31/22 15:44 BMI result Body Mass Index 35.9 minimal systolic hypertension Const: General: No confusion Orientation/consciousness: patient oriented x3 and No confusion HEENT: Head: Yes normal to inspection, Yes normocephalic and Yes atraumatic Ears: hearing grossly normal bilaterally, external ears normal, TM normal on the right, left TM abnormal and TM abnormal erythematous; not bulging General no se exam: Normal external nose present Eyes: General: appearance normal, both eyes and all related structures Sclerae: sclerae normal Corneas: corneas normal Neck: Neck: Yes normal visual inspection and Yes full ROM Neuro: General: patient oriented x3 and No confusion Cranial nerves: Yes CN's II-XII intact bilaterally Speech: No Abnormal speech present Extrem: General: Yes normal to inspection and Yes full ROM MDM - Ear MDM Narrative Medical decision making narrative: Patient appears to have a mild otitis externa with inflammation in the canal and a relatively normal TM. will provide topical treatment and advise to take OTC decongestant/antihistamine. Medical Records Medical records narrative: non contributory Discharge Plan Discharge Clinical Impression: Otitis externa Patient Disposition: Home, Self-Care Instructions: Otitis Externa (ED) Prescriptions: New dllfqpzw-uwcmfygah-LP 3.5-10,000-1 mg/mL-unit/mL-% drops,suspension 4 drp otic (ear) left Q8H Qty: 10 0RF No Action metronidazole [Flagyl] 500 mg tablet 500 mg PO BID 7 Days Qty: 14 0RF Rx Instructions: Take with food, Avoid alcohol and vinegar products ondansetron HCl [Zofran] 4 mg tablet 4 mg PO Q8H PRN (Reason: nausea and vomiting) Qty: 10 0RF Vitamin Plus Low Iron 27 mg iron- 1 mg tablet 1 tab PO DAILY (DME) lancets [FreeStyle Lancets] 28 gauge misc See Rx Instructions miscellaneous .MEDSUPPLY Qty: 100 6RF Rx Instructions: four times as day (DME) FreeStyle Lite Strips Strip See Rx Instructions miscellaneous .MEDSUPPLY Qty: 100 6RF Rx Instructions: four times a day (DME) blood-glucose meter [FreeStyle Lite Meter] Kit See Rx Instructions .ROUTE .MEDSUPPLY Qty: 1 0RF Rx Instructions: four times a day ferrous sulfate 324 mg (65 mg iron) tablet,delayed release (DR/EC) 324 mg PO TID Qty: 90 4RF polyethylene glycol 3350 [Miralax] 17 gram/dose powder 8.5 g PO DAILY Qty: 238 1RF Adacel(Tdap Adolesn/Adult)(PF) 2 Lf-(2.5-5-3-5 mcg)-5Lf/0.5 mL syringe 0.5 ml IM ONCE Qty: 0.5 0RF Mirena 20 mcg/24 hours (6 yrs) 52 mg intrauterine device intrauterine nitrofurantoin monohyd/m-cryst [Macrobid] 100 mg capsule 100 mg PO Q12H 5 Days Qty: 10 0RF Rx Instructions: must administer with a meal/food miconazole nitrate [Monistat 7] 2 % cream 1 appful vaginal BEDTIME 7 Days Qty: 45 0RF aspirin [Aspirin Childrens] 81 mg tablet,chewable 162 mg PO DAILY Qty: 60 7RF Rx Instructions: start 2 tabs daily at bedtime at 14-16weeks and continue daily until 2 weeks
== END 2022-08-31 15:55 | disposition home or self-care (01) ==
PROVIDERS: Emergency Provider Emergency Medicine
DX: H60.503 Unspecified acute noninfective otitis externa, bilateral (principal)
CPT/HCPCS: 99281; 99283

== ENCOUNTER → 2022-12-22 14:11 | Outpatient (BNVA) | payer OTHER, SELFPAY | PROVIDERS: Visit Provider Advanced Practice Midwife | DX: O26.899 Other specified pregnancy related conditions, unspecified trimester (principal); N92.6 Irregular menstruation, unspecified; O24.419 Gestational diabetes mellitus in pregnancy, unspecified control; O99.019 Anemia complicating pregnancy, unspecified trimester; D64.9 Anemia, unspecified; O33.8 Maternal care for disproportion of other origin; O09.899 Supervision of other high risk pregnancies, unspecified trimester; E87.4 Mixed disorder of acid-base balance; Z3A.00 Weeks of gestation of pregnancy not specified; Z78.9 Other specified health status | CPT/HCPCS: 81025; 99212 ==

== ENCOUNTER 2022-12-24 14:51 | Outpatient (REF) | payer OTHER, SELFPAY ==
--- NOTE | ~2022-12-24 | US_ITS ---
EXAMINATION: US OBSTETRICAL ULTRASOUND CLINICAL INFORMATION: Irregular menstruation. COMPARISON: Ultrasound OB 01/30/2021. LMP: Unknown. Gestational age by maternal dates is none. Estimated date of delivery by maternal dates is none. TECHNIQUE: Transabdominal imaging of pelvis is performed. FINDINGS: There is a single intrauterine gestational sac with visible yolk sac, embryo/fetus, and cardiac activity. There is no significant subchorionic hemorrhage or hematoma. HR: 140 beats per minute. CRL (crown rump length): 0.99 cm (7 weeks and 1 day +/- 4 days). KIMO (estimated date of delivery): 08/11/2023 +/- 4 days. MATERNAL ADNEXA: The right maternal ovary measures 1.8 x 1.1 x 1.5 cm. No focal lesion seen. The left maternal ovary measures 2.6 x 2.3 x 2.4 cm. There is anechoic cyst measuring 1.7 x 1.5 x 1.5 cm. There is no significant maternal adnexal mass. No maternal pelvic ascites. US/US OB <= 14 weeks fetus IMPRESSION: 1. Single intrauterine gestation with ultrasound gestational age of 7 weeks and 1 day +/- 4 days. 2. Estimated date of delivery is 08/11/2013 +/- 4 days. 3. No maternal adnexal mass or pelvic ascites.
== END 2022-12-24 14:52 | disposition home or self-care (01) ==
LOC: HO.US 14:51
PROVIDERS: Visit Provider Advanced Practice Midwife
DX: Z34.91 Encounter for supervision of normal pregnancy, unspecified, first trimester (principal); Z3A.01 Less than 8 weeks gestation of pregnancy
CPT/HCPCS: 76801

== ENCOUNTER 2025-09-18 13:35 | Outpatient (AMB) | payer BC, SELFPAY ==
[2025-09-18 13:37] VITALS: BP 112/76; PULSE 83; TEMP 36.8; O2SAT 96; BMI 39.0
--- NOTE | 2025-09-18 13:37 | AM.OFFWIN_ITS ---
Intake Vital Signs 09/18/25 13:37 Height 5 ft 2 in Weight 213 lb BMI 39.0 BP 112/76 Blood Pressure Location Lt brachial Position Sitting Pulse 83 Pulse Source Pulse Oximeter Temp 98.3 F Temp Source Oral Pulse Oximetry (%) 96 Oxygen Delivery Method Room Air Intake Visit Reasons: EP possible cyst on right arm Intake Note: Patient presents c/o red, painful, hard, warm cyst x5 days. Patient Tobacco Use Status: Never used Tobacco Allergies Penicillins Allergy (Intermediate, Verified 09/18/25 13:41) itching, throat feels funny seasonal Allergy (Unknown, Uncoded 09/18/25 13:41) Unknown HPI HPI Comments History of Present Illness Details This is a 25-year-old female with no stated past medical history presenting for evaluation of a red painful lesion on her right arm that has been evolving over the past 5 days. Patient states that she comes today because the lesion has become significantly more painful since yesterday. She denies having any fevers but has had chills. She has not taken any medication for treatment of this lesion however has used warm compresses directly on top of the lesion. [facility] Medical History Constipation GERD (gastroesophageal reflux disease) RTA (renal tubular acidosis) Spinal asymmetry (< 10 degrees) Surgical History No history of previous surgery [place] teeth extracted Family History Maternal Grandmother Diabetes mellitus HTN (hypertension) CVD (cardiovascular disease) Maternal Grandfather Diabetes mellitus HTN (hypertension) Social History Alcohol intake: never Patient Tobacco Use Status: Never used Tobacco Current occupational status: employed Sexual orientation: Straight/Heterosexual Gender identity: Female Female Reproductive History Menstrual Age of Menarche: 10 Review of Systems Const All systems reviewed & are unremarkable except as noted in HPI and below Denies body aches, Denies chills, Denies fatigue and Denies fever(s) Musc Reports no additional complaints Skin/Breast Reports lesions, Reports new lesions and Reports erythema Neuro Reports no additional complaints Psych Reports no additional complaints Endo Reports no additional complaints and Denies fatigue Inderjit/Lymph Reports no additional complaints Aller/Immun Reports no additional complaints Physical Exam Vital Signs: BMI result Body Mass Index 39.0 Patient is afebrile. Const General: cooperative, healthy appearing, comfortable, no acute distress, well developed, alert, awake and Physically active; No acute distress, ill appearing or lethargic Nutritional Appearance: overweight Orientation/consciousness: patient oriented x3 and No lethargic Limitations: no limitations Skin Other: There is a 2cm round erythematous area of induration and tenderness on the dors al right forearm with 1.5cm surrounding macular erythema and central excoriation. No active discharge or fluctuance appreciated. Neuro General: patient oriented x3 Extrem Other: ROM intact right olecranon, right wrist; sensation intact throughout. Psych Appearance: grossly normal Mental Status: mental status grossly normal Insight: Good insight present (Psych) Judgement: Good judgement present (Psych) Assessment & Plan Assessment & Plan (1) Abscess of forearm, right: Comment: Macular erythema surrounding the evolving abscesses is marked with a surgical marker and the patient will be discharged home with antibiotic therapy. Given the characteristics of this lesion, I & D would not be therapeutic or productive at this time. Code(s): L02.413 - Cutaneous abscess of right upper limb Plan: Warm moist compresses 3 times daily; doxycycline 100 mg b.i.d. x7 days. Medications: New doxycycline hyclate 100 mg PO BID 14 caps 0RF Coding Level of Care Code Est Pt Level 3 (00143) Diagnoses Abscess of forearm, right L02.413 Time Spent (min) 20
--- OUTSIDE RECORDS SUMMARY | 2025-09-18 21:03 | XMS_ITS | Clinical Summary ---
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 Latisha Tee MD Primary Care Provider Surgical History Surgery Date Site/Laterality Comments WISDOM TOOTH EXTRACTION 2014 Bilateral PROCEDURE: HISTORICAL WISDOM TEETH EXTRACTION Medical History Medical History Date Comments Exercise-induced asthma DX:Exerc ise-induced asthma Anxiety disorder DX:Anxiety diso rder Family History Medical History Relation Name Comments Diabetes Father Hypertension Father Diabetes Maternal Grandmother Diabetes Mother Hypertension Mother Breast cancer Neg Hx Colon cancer Neg Hx Ovarian cancer Neg Hx Relation Name Status Comments Father Alive Maternal Grandmother Mother Alive Social History Tobacco Use Types Packs/Day Years Used Date Smoking Tobacco: Never Smokeless Tobacco: Never Alcohol Use Standard Drinks/Week Comments Yes 0 (1 standard drink = 0.6 oz pur e alcohol) Comments Unknown Sex and Gender Information Value Date Recorded Sex Assigned at Not on file Legal Sex Female 4:46 PM EST Gender Identity Not on file Sexual Orientation Not on file Plan of Treatment Health Maintenance Due Date Last Done Comments HPV Vaccines (1 - 3-dose series) 2015 DTaP,Tdap,and Td Vaccines (1 - Tdap) 2019 Hepatitis B Vaccines (1 of 3 - 19+ 3-dose series) 2019 Cervical Cancer Screening: P ap Smear 2021 Depression Screening 10/10/2024 COVID-19 Vaccine ( - 2024-2 6 season) 2025 Influenza Vaccine (#1) 2025 07/09/2021 RSV Immunization Adult Patie nts (1 - 1-dose 75+ series) 2075 HIB Vaccines Aged Out No longer eligi ble based on patient's age to complete this topic Hepatitis A Vaccines Aged Out No long er eligible based on patient's age to complete this topic IPV Vaccines Aged Out No longer eligi ble based on patient's age to complete this topic MMR Vaccines Aged Out No longer eligi ble based on patient's age to complete this topic Meningococcal ACWY Vaccine Aged Out N o longer eligible based on patient's age to complete this topic Meningococcal B Vaccine Aged Out No l onger eligible based on patient's age to complete this topic Pneumococcal Vaccine: Pediat rics (0 to 5 Years) and At-Risk Patients (6 to 49 Years) Aged Out No longer eligi ble based on patient's age to complete this topic RSV Immunization Patients Un roverto 20 months Aged Out No longer eligible b ased on patient's age to complete this topic Varicella Vaccines Aged Out No longer eligible based on patient's age to complete this topic Care Teams [employer] Farmworker Relationship Specialty Start Date End Date Latisha Tee MD PCP - General Internal Medicine 02/05/21
--- OUTSIDE RECORDS SUMMARY | 2025-09-18 21:03 | XMS_ITS | Encounter Summary ---
Author Organization [facility] Address [address] [place] [id number] Phone Care Team Providers Care Professor Of Exercise Science Name Role Phone Unavailable Primary Care Provider Unavailabl e Encounter Details Date Type Department Care Team (Late st Contact Info) Description 05/26/2017 Conversion Encounter [facility] - [address] [address] Social History Tobacco Use Types Packs/Day Years Used Date Smoking Tobacco: Never Comments:Never smoker Comments Unknown Sex and Gender Information Value Date Recorded Sex Assigned at Not on file Legal Sex Female 5:13 PM EDT Gender Identity Not on file Sexual Orientation Not on file documented as of this encounter Plan of Treatment Not on file documented as of this encounter Visit Diagnoses Not on filedocumented in this encounter
--- OUTSIDE RECORDS SUMMARY | 2025-09-18 21:03 | XMS_ITS | Clinical Summary ---
Author Organization [facility] Address [address] [place] [id number] Phone Care Team Providers Care Night Supervisor Name Role Phone Unavailable Primary Care Provider Unavailabl e Allergies No known active allergies Medications desogestrel-ethiny l estradiol (APRI) 0.15-30 MG-MCG per tabletIndications: Encounter for initial prescription of contraceptive pills Take 1 tablet by mouth daily. 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 06/26/2012 Immunizations Immunization Administration Dates Next Due DTaP 11/13/2004, 1,2000,09/26,2000 HPV Vaccine 9 Valent 09/26/2015 HPV, Quadrivalent 11/12/2014,06/26/2012 Hep A, ped/adol 09/26/2015,11/12/2014 Hep B, ped/adol 2000,2000,2000 Hib (HbOC) 05/29/2001, 1,2000,08/04 IPV 11/13/2004, 1,2000,08/04 Influenza Split 06/26/2012 Influenza, injectable, quadrivalent 09/26/2015,0 11/12/2014 Influenza, injectable, quadr ivalent, preservative free 09/07/2017 Influenza, injectable, trivalent 11/09/2010,10/11 Influenza, intranasal, trivalent 12/04/2008 MMR 11/13/2004,05/29/2001 Meningococcal Conj (Menactra) MCV4P 12/10/2016,0 06/26/2012 Pneumococcal Conjugate 05/29/2001,2000,2000,08/04 Tdap 06/26/2012 Varicella 05/04/2009,05/29/2001 Family History Relation Name Status Comments Mother Alive Mother: Alive a nd well, Asthma, Diabetes mellitus Other Family history of Hypertension, Family history of Obesity Social History Tobacco Use Types Packs/Day Years Used Date Smoking Tobacco: Never Smokeless Tobacco: Never Comments:Never smoker Alcohol Use Standard Drinks/Week Comments No 0 (1 standard drink = 0.6 oz pur e alcohol) Comments No Sex and Gender Information Value Date Recorded Sex Assigned at Not on file Legal Sex Female 5:13 PM EDT Gender Identity Not on file Sexual Orientation Not on file Last Filed Vital Signs Vital Sign Reading Time Taken Comments Blood Pressure 130/81 03/31/2018 8:58 AM EDT Pulse 85 03/31/2018 8:58 AM EDT Temperature 37.2 C (99 F) 09/07/2017 3:28 PM EST Respiratory Rate - - Oxygen Saturation - - Inhaled Oxygen Concentration - - Weight 85.8 kg (189 lb 3.2 oz) 03/31/2018 8:58 A M EDT Height 157.5 cm (5' 2 ) 03/31/2018 8:58 AM EDT Body Mass Index 34.61 03/31/2018 8:58 AM EDT Plan of Treatment Health Maintenance Due Date Last Done Comments DTaP,Tdap,and Td Vaccines (7 - Td or Tdap) 06/26/2022 06/26/2012, 11/13/2004, 08/28/2001, Additional history exists Influenza Vaccines (#1) 2025 09/07/20, 09/26/2015, 11/12/2014, Additional history exists COVID-19 Vaccine (1 - 2024- season) 2025 Hepatitis B Vaccines Completed 2000, 2000, 2000 HIB Vaccines Completed 05/29/2001, 11/11, 2000, Additional history exists Pneumococcal Vaccine Completed 05/29/2001, 2000, 2000, Additional history exists IPV Vaccines Completed 11/13/2004, 08/10, 2000, Additional history exists MMR Vaccines Completed 11/13/2004, 05/29/2001 Varicella Vaccines Completed 05/04/2009, 05/29/2001 HPV Vaccines Completed 09/26/2015, 12/2014, 06/26/2012 Hepatitis A Vaccines Completed 09/26/2015, 11/12/19 15 Meningococcal Vaccine Completed 12/10/2016, 012 Men B Vaccine Aged Out No longer elig ible based on patient's age to complete this topic Procedures * Due to [place] law, this organization might not be sharing sensitive test results. Procedure Name Priority Date/Time Associated Diagnosis Comments CHLAMYDIA AND GONORRHEA, AMPLIFIED Routine 03/31/2018 9:35 AM EDT Encounter for initial prescription of contraceptive pills from Last 3 Months or Most Recently Relevant to Health Maintenance Results * Due to [place] law, this organization might not be sharing sensitive test results. * Chlamydia and Gonorrhoea, Amplified (03/31/2018 9:35 AM EDT) Chlamydia Trachomatis, DNA Probe NEGATIVE (NEG) [facility] Comment: No Chlamydia Trachomatis RNA detected in this patient's sample (REFERENCE RANGE/NORMAL VALUE: NOT DETECTED) Note: This test uses auto self service station attendant- mediated amplification method to detect rRNA from C. Trachomatis URINE GC AMP PROBE NEGATIVE (NEG) [facility] Comment: No Neisseria Gonorrhoeae RNA detected in this patient's sample (REFERENCE RANGE/NORMAL VALUE: NOT DETECTED) NOTE: This test uses auto self service station attendant-mediated amplification method to detect rRNA from N.Gonorrhoeae. A negative result does not preclude infection. In the case of a negative urine result, testing of an endocervical(female) or urethral (male) specimen is recommended if there is high clinical suspicion of infection. Due to very high sensitivity of Nucleic Acid Amplification Test, false positive results may occur. Therefore, specimen handling is extremely important. In patients in whom the disease is unlikely, additional sample for testing should be considered after an initial positive result. The performance characteristics of this test have not been evaluated in children. The Aptima Combo2 assay is not intended for the evaluation of suspected sexual abuse or for other medico-legal indications. The ordering provider should assess if the patient had consensual sex without risk of sexual abuse. Consult the [facility] if needed. Contact phone number . Therapeutic failure or success cannot be determined with the Aptima Combo2 assay since nucleic acid may persist following appropriate antimicrobial therapy. The Centers for Disease Control and Prevention (CDC) recommends confirmatory retesting using culture or a different nucleic acid amplification test when positive results occur, if indicated. Testing performed or reported by [facility], a Service of [facility], [address] [place] [address] CLIA [id number] Ramy Varner MD, PhD, Seed Cleaning Machine Operator Urine 03/31/2018 9:35 AM EDT 03/31/2018 8:40 PM EDT us Maggie Rowland MD LAB MICROBIOLOGY - GENERAL ORDER LUIS Final Result [facility] from Last 3 Months or Most Recently Relevant to Health Maintenance Insurance [employer] NON PCC
== END 2025-09-18 13:58 | disposition home or self-care (01) ==
PROVIDERS: Visit Provider Physician Assistant
DX: L02.413 Cutaneous abscess of right upper limb (principal)